=== PATIENT | female | born 1965 ===

== ENCOUNTER 2020-01-17 15:17 | Day surgery (SDC) | payer SELFPAY ==
[~2020-01-17] VITALS: Ht 157.5 cm; Wt 86.4 kg
[2020-01-17 15:28] VITALS: BP 143/83; Ht 157.5 cm; Wt 86.4 kg
--- NOTE | 2020-01-17 17:52 | NUR ---
PATIENT STATES SHE FEELS ITS MORE SORENESS AND DISCOMFROT FROM COUGHING SO MUCH RATHER THAN JUST PAIN.
== END 2020-01-17 21:45 | disposition home or self-care (01) ==
LOC: D.ER 15:17 → D.OPS 17:33 → EDSTATUS 18:08 → D.ER 21:44 → D.OPS 21:45 → D.ER 21:45 → EDSTATUS 01-18 08:57
PROVIDERS: ATTEND Internal Medicine Gastroenterology
DX: T18.198A Other foreign object in esophagus causing other injury, initial encounter (principal)